=== PATIENT | female | born 1965 | race Caucasian/White ===

== ENCOUNTER 2020-04-15 12:50 | Emergency (ER) | payer OTHER, SELFPAY ==
[2020-04-15 13:19] VITALS: BP 144/88; PULSE 97; RESP 16; TEMP 36.4; O2SAT 96; BMI 33.6
--- NOTE | 2020-04-15 13:45 | XR_ITS ---
WS: [id number] Left hip, AP and frog-leg, erect AP pelvis, 04/15/2020 Clinical Data: Left hip pain Comparison: None. Findings: No fractures or dislocations are seen. The hip joints are intact. The soft tissues are not remarkable . The adjacent pelvis is normal. The SI joints and pubic symphysis are unremarkable. XR/XR hip LT 2-3V wo/w pel* [id number] Impression: Negative left hip and pelvis.
--- NOTE | 2020-04-15 14:52 | W.ED.EXTPRO ---
HPI - Extremity Problem General: Chief complaint: Extremity Injury, Lower Stated complaint: back pain, left hip pain Time Seen by Provider: 04/15/20 13:04 History of Present Illness: HPI Narrative: 54-year-old female patient presents to the emergency department with onset of left hip pain. She reports was loading her goats in the trailer this morning when she overreached, hearing a pop on her left hip. She reports is able to ambulate, pain with movement. MD Complaint: joint pain (Left hip) Onset (ago): hour(s) (07:30 this a.m.) Pain Consistency: intermittent Location: left and lower extremity Severity scale (1-10): 5 Quality: aching Radiation: none Relieving factors: rest Exacerbating factors: range of motion and weight bearing Associated symptoms: Reports no associated symptoms; Deny chest pain, fever(s) or rash Review of Systems General: Reports: 10 or more systems reviewed and unremarkable except in HPI and below Const: Denies: fever(s), chills or diaphoresis Eyes: Denies: blurry vision or eye redness ENMT: Denies: throat pain, dental pain or disequilibrium Card: Denies: chest pain, palpitations or irregular heart rhythm Resp: Denies: dyspnea, productive cough, non-productive cough or wheezing GI: Denies: abdominal pain, nausea or vomiting : Denies: difficulty voiding or dysuria Musc: Reports: joint pain (Left hip); Denies: neck pain or back pain Skin/Breast: Denies: rash or pruritus Neuro: Denies: headache(s), weakness in extremities or behavioral changes Damian/Lymph: Denies: easy bruising [facility] ED PFSH: Social History (Updated 04/15/20 @ 13:26 by Rickie Garcia RN) Smoking and tobacco status: heavy tobacco smoker cigarettes Packs smoked per day: 2 Alcohol intake: current Alcohol intake frequency: holidays/special occasions only Physical Exam Const: COMMON NORMALS: no acute distress, patient oriented x3, healthy appearing and alert GENERAL APPEARANCE: cooperative, comfortable and well hydrated HENMT: COMMON NORMALS: normocephalic, Normal external nose present and moist oral mucous membranes HEAD & SCALP: normocephalic NOSE: Normal external nose present Eye: COMMON NORMALS: Equal, round and reactive pupils present and EOMs intact bilaterally GENERAL EYE: appearance normal, both eyes and all related structures PUPIL: Yes Equal, round and reactive pupils present Neck/C-Spine: COMMON NORMALS: full ROM and no lymphadenopathy GENERAL: Yes normal visual inspection and Yes trachea midline CERVICAL SPINE: Yes cervical ROM normal Lymph: LYMPHATIC: no lymphadenopathy noted Chest: COMMONS NORMALS: normal inspection of the chest Resp: COMMON NORMALS: normal respiratory effort and clear to auscultation bilaterally AUSCULTATION: clear to auscultation bilaterally Cardio: COMMON NORMALS: regular rhythm, S1 normal heart sound present and S2 normal heart sound present RHYTHM: regular rhythm HEART SOUNDS: S1 normal heart sound present and S2 normal heart sound present GI: COMMON NORMALS: Soft to palpation and non-tender INSPECTION: Yes normal to inspection PALPATION: Yes Soft to palpation : COMMON NORMALS: Yes no CVA tenderness BLADDER/KIDNEY EXAM: Yes no CVA tenderness Back/Pelvis: COMMON NORMALS: no CVA tenderness, thoracic and lumbar spine normal to inspection and thoraco-lumbar ROM normal THORACIC SPINE/UPPER BACK: Yes normal to inspection, Yes thoracic ROM normal, No thoracic spinal tenderness and No paraspinal muscle spasm LUMBAR SPINE/LOWER BACK: No paraspinal muscle tenderness, No paraspinal muscle spasm, No straight leg raise positive right and Yes straight leg raise positive left OTHER: Right lower extremity strength 5/5; left lower extremity strength four 3/5, limited secondary to pain Extremity: COMMON NORMALS: normal to inspection and capillary refill normal GENERAL: Yes normal exam except as noted LEFT LOWER EXTREMITY: Yes hip joint (Normal) Left hip: Yes inspection and Yes palpation (Not able to reproduce pain anteriorly, patient does experience pain over the iliac crest, negative lateral pain, pain to the iliac crest on the left reproduced with ambulation.) Neuro: COMMON NORMALS: patient oriented x3 and no focal motor deficits SENSORIUM/ORIENTATION: Yes alert SPEECH: speech normal GAIT: Yes Other gait observations present ([place]) MONOFILAMENT EXAM PERFORMED: Yes Monofilament Exam (small fiber function): L great toe: normal, L 3rd toe: normal and L 5th toe: normal Psych: COMMON NORMALS: mental status grossly normal, Normal thought process present and cooperative ACTIVITY/MOTOR BEHAVIOR: Yes appropriate eye contact THOUGHT PROCESS: Normal thought process present Skin: COMMON NORMALS: no rashes or lesions noted and turgor normal GENERAL SKIN EXAM: no rashes or lesions noted and turgor normal Course ED course: 54-year-old female patient presents to the emergency department with onset of left hip pain. She reports was attempting to load goats in the trailer when she extended her left hip, felt a pop, she presents due to pain with ambulation. She reports is able to bear weight and stand without pain, she reports pain with ambulation. X-ray results were discussed with the patient, she agrees to follow-up with her primary care next week, she agrees to use salon pAS, cool compresses and warm moist heat. States has hydrocodone at home but will take those if necessary. Vital Signs: Vital signs: Vital Signs Temperature 97.5 F L 04/15/20 13:19 Pulse Rate 88 04/15/20 15:45 Respiratory Rate 17 04/15/20 15:45 Blood Pressure 128/86 04/15/20 15:45 Pulse Oximetry 96 04/15/20 15:45 Discharge Plan Discharge Patient Disposition: Home Clinical Impression: Muscle strain of left hip Qualifiers: Encounter type: initial encounter Qualified Code(s): S76.012A - Strain of muscle, fascia and tendon of left hip, initial encounter Condition: Stable Prescriptions: New tizanidine 4 mg tablet 4 mg PO TID PRN (Reason: muscle spasticity) Qty: 10 RF: 0 No Action losartan 50 mg tablet RF: 0 atorvastatin 10 mg tablet RF: 0 famotidine 40 mg tablet RF: 0 glipizide 2.5 mg tablet extended release 24hr PO RF: 0 levothyroxine 50 mcg tablet RF: 0 metformin 750 mg tablet extended release 24 hr PO RF: 0 hydrochlorothiazide 12.5 mg tablet RF: 0 Discharge Orders: Discharge Order (Routine); Ordered 04/15/20 Ordered By: Aury Maddox Referrals: Stefania Kaur MD [Family Provider] - Discharge Diet: Usual diet Discharge Activity: Limit activity as instructed Patient Instructions: Muscle Strain (ED), Arthralgia (ED) Activity Restrictions/Additional Instructions: Follow-up with your doctor in 5 to 7 days if not improving Apply cool compresses alternate with warm moist heat as needed for pain You may apply [id number] use of salon pas, roll-on applied to the affected area as directed on bottle as needed for pain. Return to the emergency room if you develop worsening hip pain, redness swelling to the left lower extremity, numbness that may develop to the left lower extremity Discharge Date/Time: 04/15/20 15:46 Coding Level of Care Code ED Gridcap Machine Operator for Stephy Fwd Exam Comprehensive
[2020-04-15 15:45] VITALS: BP 128/86; PULSE 88; RESP 17; O2SAT 96
== END 2020-04-15 15:46 | disposition home or self-care (01) ==
PROVIDERS: Emergency Provider Nurse Practitioner Family; Family Provider Family Medicine
DX: S76.012A Strain of muscle, fascia and tendon of left hip, initial encounter (principal); F17.210 Nicotine dependence, cigarettes, uncomplicated; X50.9XXA Other and unspecified overexertion or strenuous movements or postures, initial encounter
CPT/HCPCS: 12345; 73502; 99281; 99282

== ENCOUNTER 2021-05-28 07:57 | Emergency (ER) | payer OTHER, SELFPAY ==
[2021-05-28 08:18] VITALS: BMI 33.6
--- NOTE | 2021-05-28 08:51 | ED_ITS ---
HPI - Back Pain/Injury General: Chief Complaint: Back Pain/Injury Stated Complaint: severe lower back pains Time Seen by Provider: 05/28/21 08:12 History of Present Illness: HPI Narrative: Patient states that she has back pain that started about 2 weeks ago. Patient states that she carried a dresser up some stairs yesterday and the back pain got a lot worse and she started have some spasms when she was walking after that. Today it hurts to sit up move xochilt und. Does have a history of kidney stones. Also said she had some spotting which she believes was from her vagina. Associated symptoms: Deny abdominal pain, chills, fever(s), nausea or vomiting Review of Systems Const: Denies: fever(s), chills or body aches Eyes: Denies: change in vision or blurry vision ENMT: Denies: throat pain or nasal congestion Card: Denies: chest pain or dyspnea on exertion Resp: Denies: dyspnea, productive cough or non-productive cough GI: Denies: abdominal pain, nausea or vomiting : Reports: vaginal bleeding Musc: Reports: back pain; Denies: extremity pain Skin/Breast: Denies: rash Neuro: Denies: headache(s) Psych: Denies: anxiety or depression Damian/Lymph: Denies: easy bruising PFSH ED PFSH: Social History (Updated 04/15/20 @ 13:26 by Rickie Garcia RN) Smoking and tobacco status: heavy tobacco smoker cigarettes Packs smoked per day: 2 Alcohol intake: current Alcohol intake frequency: holidays/special occasions only Physical Exam Const: COMMON NORMALS: no acute distress, average body habitus and patient oriented x3 HENMT: COMMON NORMALS: normocephalic HEAD & SCALP: normal to inspection and normocephalic FACE & SINUS: normal facial exam Eye: COMMON NORMALS: conjunctivae normal GENERAL EYE: appearance normal, both eyes and all related structures CONJUNCTIVA: Yes conjunctivae normal Neck/C-Spine: COMMON NORMALS: no JVD Chest: COMMONS NORMALS: normal inspection of the chest Resp: COMMON NORMALS: normal respiratory effort and clear to auscultation bilaterally AUSCULTATION: clear to auscultation bilaterally Cardio: COMMON NORMALS: no JVD, regular rate and regular rhythm RATE: regular rate RHYTHM: regular rhythm GI: COMMON NORMALS: Normal to inspection, nondistended, normoactive bowel sounds present : BLADDER/KIDNEY EXAM: Yes CVA tenderness Back/Pelvis: GENERAL BACK: Yes CVA tenderness CVA tenderness: right LUMBAR SPINE/LOWER BACK: Yes normal to inspection, Yes straight leg raise positive right Straight leg raise positive details right: at 60 degrees and Yes straight leg raise positive left Straight leg raise positive details left: at 60 degrees Extremity: COMMON NORMALS: normal to inspection and full ROM Neuro: COMMON NORMALS: patient oriented x3 MDM - Back Pain/Injury MDM Narrative: Medical decision making narrative: Patient was pain-free after medication. CT was negative except for right ovarian cyst. Patient said she has had problems with it for years. Patient denies any other problems. Laboratory studies were negative for any blood in the urine or other concerning factors. Lab Data: Labs: Lab Results 05/28/21 05/28/21 05/28/21 08:35 08:35 09:37 WBC 9.2 10^3/uL 10^3/ uL (4.0-10.0) RBC 4.73 10^6/uL 10^6 /uL (4.1-5.3) Hgb 14.9 g/dL g/dL (11.5-15.3) Hct 42.3 % % (37.0-47.0) MCV 89.4 fl fl (81-99) MCH 31.5 pg pg (28.0-34.0) MCHC 35.2 g/dL g/dL (30.0-36.0) RDW 12.1 % % (12.1-15.1) Plt Count 248 10^3/cmm 10^3 /cmm (130-400) MPV 10.5 fL H fL (7.4-10.4) Neut % (Auto) 72.6 % % Lymph % (Auto) 19.2 % % Ware % (Auto) 5.8 % % Eos % (Auto) 1.2 % % Baso % (Auto) 1.0 % % Neut # (Auto) 6.68 10^3/uL 10^3 /uL (1.8-7.7) Lymph # (Auto) 1.8 10^3/uL 10^3/ uL (0.8-4.8) Ware # (Auto) 0.5 10^3/uL 10^3/ uL (0.2-0.9) Eos # (Auto) 0.1 10^3/uL 10^3/ uL (0.0-0.8) Baso # (Auto) 0.1 10^3/uL 10^3/ uL (0.0-0.1) Nucleated RBC % (a uto) 0 % % Nucleated RBCs # 0.0 /100WBC /100W BC Sodium 137 mmol/L mmol/L (136-145) Potassium 4.0 mmol/L mmol/L (3.5-5.1) Chloride 100 mmol/L mmol/L (98-107) Carbon Dioxide 25 mmol/L mmol/L (22-29) Anion Gap 16.0 (5-19) BUN 14 mg/dL mg/dL (6-20) Creatinine 0.5 mg/dL mg/dL (0.5-0.9) GFR Calculation 129.1 mL/min mL/m in (90-130) Glucose 187 mg/dL H mg/dL (65-115) Calculated Osmolal ity 289 mOsm/kg mOsm/ kg (285-295) Calcium 9.2 mg/dL mg/dL (8.5-10.5) Total Bilirubin 0.5 mg/dL mg/dL (0.15-1.2) AST 17 U/L U/L (0-32) ALT 23 U/L U/L (0-33) Alkaline Phosphata se 77 IU/L IU/L (35-105) Total Protein 6.6 g/dL g/dL (6.6-8.7) Albumin 4.4 g/dL g/dL (3.5-5.2) Globulin 2.2 g/dL g/dL (1.3-4.6) Urine Color Yellow (Yellow) Urine Appearance Clear (CLEAR) Urine pH 5 (5-7) Ur Specific Gravit y 1.015 (1.005-1.030) Urine Protein Neg (Negative) Urine Glucose (UA) Norm (Normal) Urine Ketones Negative (Negative) Urine Blood Neg (Negative) Urine Nitrate Negative (Negative) Urine Bilirubin Neg (Negative) Urine Urobilinogen Norm mg/dL mg/dL (Negative) Ur Leukocyte Lorin ase Negative (Negative) Discharge Plan Discharge Patient Disposition: Home Clinical Impression: Strain of lumbar region Qualifiers: Encounter type: initial encounter Qualified Code(s): S39.012A - Strain of muscle, fascia and tendon of lower back, initial encounter Condition: Stable Prescriptions: New Celebrex 100 mg capsule 100 mg PO BID Qty: 20 RF: 0 cyclobenzaprine 5 mg tablet 5 mg PO TID PRN (Reason: muscle spasm) Qty: 10 RF: 0 Discontinued tizanidine 4 mg tablet 4 mg PO TID PRN (Reason: muscle spasticity) Qty: 10 RF: 0 No Action losartan 50 mg tablet RF: 0 atorvastatin 10 mg tablet RF: 0 famotidine 40 mg tablet RF: 0 glipizide 2.5 mg tablet extended release 24hr PO RF: 0 levothyroxine 50 mcg tablet RF: 0 metformin 750 mg tablet extended release 24 hr PO RF: 0 hydrochlorothiazide 12.5 mg tablet RF: 0 Discharge Orders: Discharge ED (Routine); Ordered 05/28/21 Ordered By: Isaias Woods Referrals: Stefania Kaur MD [Primary Care Provider] - Discharge Diet: Usual diet Discharge Activity: Limit activity as instructed Patient Instructions: Low Back Strain (ED), Lower Back Exercises (ED) Activity Restrictions/Additional Instructions: Follow-up with medical provider as directed. Take medications as prescribed. Return to the ER or your medical provider if condition worsens. Please read and understand discharge instructions. If any questions ask please. Stand Alone Forms: Work/School Release Coding Level of Care Code ED Ground Host/Hostess for Stephy Fwd Exam Comprehensive
[2021-05-28 09:13] LABS: Basophils # 0.1 10^3/uL (0.0-0.1); Eosinophils # 0.1 10^3/uL (0.0-0.8); Eosinophils % 1.2 %; Hematocrit 42.3 % (37.0-47.0); Hemoglobin 14.9 g/dL (11.5-15.3); Lymphocytes # 1.8 10^3/uL (0.8-4.8); Lymphocytes % 19.2 %; Mean Corpuscular HGB Conc 35.2 g/dL (30.0-36.0); Mean Corpuscular Hemoglobin 31.5 pg (28.0-34.0); Mean Corpuscular Volume 89.4 fl (81-99); Mean Platelet Volume 10.5 fL (7.4-10.4); Monocytes # 0.5 10^3/uL (0.2-0.9); Monocytes % 5.8 %; Neutrophils # 6.68 10^3/uL (1.8-7.7); Neutrophils % 72.6 %; Nucleated Red Blood Cells % 0 %; Platelet Count 248 10^3/cmm (130-400); Red Blood Count 4.73 10^6/uL (4.1-5.3); Red Cell Distribution Width 12.1 % (12.1-15.1); White Blood Count 9.2 10^3/uL (4.0-10.0)
[2021-05-28] MEDS: sodium chloride 0.9% 1,000 ML 999 ML IV (09:29)
[2021-05-28] MEDS: ketorolac 30 mg/mL INJ IVP (09:30)
--- NOTE | 2021-05-28 09:30 | CTR_ITS ---
PROCEDURE INFORMATION: Exam: CT Abdomen And Pelvis With Contrast Exam date and time: 05/28/2021 9:30 AM Age: 55 years old Clinical indication: Abdominal pain; Flank; Right; Additional info: Right flank pain, vaginal bleed TECHNIQUE: Imaging protocol: Computed tomography of the abdomen and pelvis with contrast. Radiation optimization: All CT scans at this facility use at least one of these dose optimization techniques: automated exposure control; mA and/or kV adjustment per patient size (includes targeted exams where dose is matched to clinical indication); or iterative reconstruction. Contrast material: OMNI 300; Contrast volume: 95 ml; Contrast route: INTRAVENOUS (IV); COMPARISON: CT Abdomen/Pelvis Renal [id number] 11/09/2017 1:58 PM RADIATION DOSE METRICS: Total DLP (mGy-cm): 1711.1 FINDINGS: Liver: Normal. No mass. Gallbladder and bile ducts: Normal. No calcified stones. No ductal dilation. Pancreas: Normal. No ductal dilation. Spleen: Normal. No splenomegaly. Adrenal glands: Normal. No mass. Kidneys and ureters: Normal. No hydronephrosis. Stomach and bowel: Scattered colonic diverticula without findings of acute diverticulitis. No obstruction. No mucosal thickening. Appendix: No evidence of appendicitis. Intraperitoneal space: Unremarkable. No free air. No significant fluid collection. Vasculature: Unremarkable. No abdominal aortic aneurysm. Lymph nodes: Unremarkable. No enlarged lymph nodes. Urinary bladder: Unremarkable as visualized. Reproductive: 2 cm right ovarian cyst. Trace fluid in the endometrial canal. Subcentimeter nabothian cysts noted in the cervix. scar at the anterior lower uterine segment. Bones/joints: No acute fracture. Degenerative disc disease at L5-S1. Soft tissues: Unremarkable. CT/CT abdomen pelvis w con* [id number] IMPRESSION: 1. No acute findings. 2. Trace fluid in the endometrial canal. 3. 2 cm right ovarian cyst. For more sensitive evaluation of the reproductive organs consider ultrasound of the pelvis. Radiation Dose CTDIVOL = (mGy): DLP = 1711.1 (mGy-cm)
[2021-05-28] MEDS: orphenadrine 30 mg/mL Inj 2 mL 60 MG IVP (09:31)
[2021-05-28 09:39] LABS: Alanine Aminotransferase 23 U/L (0-33); Albumin Level 4.4 g/dL (3.5-5.2); Alkaline Phosphatase 77 IU/L (35-105); Aspartate Amino Transferase 17 U/L (0-32); Blood Urea Nitrogen 14 mg/dL (6-20); Calcium 9.2 mg/dL (8.5-10.5); Carbon Dioxide 25 mmol/L (22-29); Chloride 100 mmol/L (98-107); Globulin 2.2 g/dL (1.3-4.6); Glomerular Filtration Rate 129.1 mL/min (90-130); Glucose 187 mg/dL (65-115); Osmolality Calculated 289 mOsm/kg (285-295); Sodium 137 mmol/L (136-145); Total Bilirubin 0.5 mg/dL (0.15-1.2); Total Protein 6.6 g/dL (6.6-8.7)
[2021-05-28] MEDS: iohexol 300 mg/mL 100 mL Btl IV (10:04)
[2021-05-28 10:25] LABS: Add Urine Microscopic? NO; Charge for UA Resulting for Rev
[2021-05-28 10:33] LABS: Urine Appearance Clear (CLEAR); Urine Color Yellow (Yellow); pH Urine 5 (5-7)
[2021-05-28 10:34] LABS: Bilirubin Urine Neg (Negative); Blood Urine Neg (Negative); Glucose Urine UA Norm (Normal); Ketones Urine Negative (Negative); Leukocyte Esterase Urine Negative (Negative); Nitrate Urine Negative (Negative); Protein Urine Neg (Negative); Specific Gravity, Urine 1.015 (1.005-1.030); Urobilinogen Urine Norm (Negative)
[2021-05-28 11:13] VITALS: BP 127/82; PULSE 73; RESP 16; O2SAT 96
== END 2021-05-28 11:11 | disposition home or self-care (01) ==
PROVIDERS: Emergency Provider Nurse Practitioner Family; PCP Family Medicine
DX: S39.012A Strain of muscle, fascia and tendon of lower back, initial encounter (principal); Z79.84 Long term (current) use of oral hypoglycemic drugs; F17.210 Nicotine dependence, cigarettes, uncomplicated; X50.0XXA Overexertion from strenuous movement or load, initial encounter
CPT/HCPCS: 74177; 80053; 81003; 85025; 96361; 96374; 96375; 99283; J1885; J2360; J7030; Q9967